=== PATIENT | female | born 2005 | race Caucasian/White ===

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

== ENCOUNTER 2025-06-24 14:08 | Emergency (ER) | payer OTHER, SELFPAY ==
[2025-06-24 14:10] VITALS: BP 116/64; PULSE 110; RESP 16; TEMP 37.4; O2SAT 100; BMI 21.7
[2025-06-24 14:35] VITALS: BP 127/67; PULSE 88; RESP 14; TEMP 37.4; O2SAT 127
--- NOTE | 2025-06-24 15:10 | CT_ITS ---
PROCEDURE: CT ABDOMEN/PELVIS W IV CONT ONLY 06/24/2025 REASON FOR EXAM: RLQ PAIN TECHNIQUE: Procedure Code: [id number] Modality: CT Procedure: ABDOMEN/PELVIS W IV CONT ONLY Coronal and Sagittal reconstruction series were provided. CONTRAST: Isovue-300 VOLUME: 99 mL One or more dose reduction techniques were used (e.g., Automated exposure control, adjustment of the mA and/or kV according to patient size, use of iterative reconstruction technique. RADIATION DOSE SUMMARY: DLP: 398.24 mGycm COMPARISON: None. FINDINGS: Lung bases: Clear. Liver: No significant abnormality. Gallbladder: Unremarkable. Spleen: Unremarkable. Pancreas: Unremarkable. Adrenals: Unremarkable. Kidneys: Unremarkable. No urolithiasis or hydronephrosis. Bladder: Underdistended, grossly unremarkable. Reproductive Organs: Uterus and adnexae appear within normal limits. IUD within the uterine cavity. Small 2 cm probable involuting corpus luteal cyst within the right ovary. Trace free fluid within the pelvis is nonspecific, and may be physiologic or could be related to recent cyst rupture. Bowel: Unremarkable. No obstruction or active inflammation. Normal appendix. Lymph nodes: No enlarged abdominopelvic lymph nodes. Vasculature: Normal course and caliber of the abdominal aorta and IVC. Peritoneum / Retroperitoneum: No ascites or pneumoperitoneum. Bones: Unremarkable. CT/Abdomen/Pelvis W IV Cont ONLY IMPRESSION: 1. No acute or active inflammatory intra-abdominal pathology. Normal appendix. 2. Likely involuting 2 cm right ovarian corpus luteal cyst. Trace free fluid w ithin the pelvis is nonspecific and may be physiologic, or could reflect sequelae of recent cyst rupture. Reading Location: [facility]
--- NOTE | 2025-06-24 15:11 | EX.ED.DYSGE1 ---
HPI History of Present Illness Chief Complaint: Nausea/Vomiting/Diarrhea Narrative Narrative: Patient is a 19-year-old female with past medical history of celiac disease, ADHD, anxiety who presented to the emergency department chief complaint nausea vomiting abdominal pain. States that yesterday she was not feeling well overall. She states that she had a few episodes of nausea and vomiting earlier today and notes that her mother tried to give her Zofran. States that this helped for short period time she tried to eat again and vomited. States that she is not at the [employer] currently and notes that there is a a lot of different viral illnesses going around right now but she states that in her immediate friend group nobody has similar symptoms to her. [facility] Medical History Chronic constipation Celiac disease ADHD Anxiety Home Medications ?Medication ?Instructions ?Recorded ?Last Taken ?Type ondansetron 4 mg disintegrating 4 mg PO Q8H PRN PRN Nausea #10 tabs 01/30/24 Unknown Rx tablet clonidine HCl 0.1 mg tablet 0.1 mg PO DAILY 06/24/25 Unknown History dicyclomine 20 mg tablet 20 mg PO TID #20 tabs 06/24/25 Unknown Rx fluoxetine 40 mg capsule 80 mg PO DAILY 06/24/25 Unknown History guanfacine 2 mg tablet,extended 2 mg PO DAILY 06/24/25 Unknown History release 24 hr methylphenidate 15 mg/9 hr daily 15 mg transdermal DAILY 06/24/25 Unknown History transdermal patch ondansetron 4 mg disintegrating 4 mg PO Q6H PRN nausea and 06/24/25 Unknown Rx tablet vomiting #20 tabs Allergy/AdvReac Type Severity Reaction Status Date / Time No Known Allergies Allergy Verified 06/24/25 14:12 Social History Smoking Status: Never smoker ROS ROS ED ROS Narrative Constitutional: Denies any fevers, chills, headache Abdomen: Complains of abdominal pain as noted above, as well as nausea vomiting and diarrhea : Denies any urinary symptoms, states that she has IUD in place Neurological: Denies any numbness, weakness, tingling Musculoskeletal: Denies back pain Skin: Denies any rashes or lesions EXAM Physical Exam Narrative Exam Narrative: General: Patient was lying in bed rest comfortably did not appear to be acute distress Head: Atraumatic, normocephalic Eyes: PERRL bilaterally, EOMI bilateral, no conjunctival injection noted Neck: Soft, supple, trachea midline Cardiovascular: Regular rate and rhythm Respiratory: Clear to auscultation bilaterally Abdomen: Soft, nondistended, tenderness to palpation in the right lower quadrant as well as the right upper quadrant but no rebound or guarding on exam Extremities: +5/5 strength noted in the bilateral upper and lower extremities, radial pulses +2/4 in the bilateral extremities Neurological: Patient following commands and that she was at [facility] the year is 2024 Skin: Warm, dry, intact no rashes or lesions noted Const Vital Signs: 06/24/25 14:10 06/24/25 14:35 06/24/25 15:29 Temperature 99.3 F H 99.3 F H 99.1 F Temperature Source Oral Oral Oral Pulse Rate 110 H 88 70 Respiratory Rate 16 14 16 Blood Pressure 116/64 127/67 H 106/78 Blood Pressure Mean 81 87 87 Pulse Ox 100 127 100 Oxygen Delivery Method Room Air Room Air Room Air MDM MDM MDM Narrative Medical decision making narrative: Patient is a 19-year-old female who presents to the emergency department the chief complaint of abdominal pain nausea vomiting diarrhea. On the differential diagnose includes but not limited to viral gastroenteritis, appendicitis, cholecystitis. Once the workup is obtained reviewed she will be reevaluated. Patient be given IV fluids and Zofran. Patient CBC reviewed which showed no evidence leukocytosis white blood count of 8.4, stable 13.4, plate count normal 345. Patient sodium low at 140, potassium low at 3.5, creatinine 0.63. Patient AST and ALT were 25 and 33 respectively lipase was normal at 37. Patient test was negative. Total bilirubin normal at 0.31. Patient urinalysis showed negative nitrites negative leukocyte esterase she does not have any urinary symptoms therefore have low suspicion that the microscopic exam will be positive. Patient CT ab pelvis IV contrast reviewed which showed no acute or active inflammatory intra-abdominal pathology normal appendix. Likely involuting 2 cm right ovarian corpus luteal cyst trace free fluid within the pelvis is nonspecific may be physiological. Patient is feeling better she like to go home at this point time. Did discuss the results with her. She is advised to start with a bland diet and advance as tolerated. She will given prescription for Zofran and Bentyl. She is agreeable with plan all question concerns answered. She was encouraged to return with worsening symptoms or any concerns Lab Data Labs: Laboratory Results - last 24 hr 06/24/25 06/24/25 15:20 15:30 WBC 8.4 RBC 4.61 Hgb 13.4 Hct 39.2 MCV 85.0 MCH 29.1 MCHC 34.2 RDW Std Deviation 36.5 RDW Coeff of Ban 11.9 Plt Count 345 MPV 9.0 Immature Gran % (Auto) 0.200 Neut % (Auto) 62.5 Lymph % (Auto) 30.2 [place] % (Auto) 6.5 Eos % (Auto) 0.2 Baso % (Auto) 0.4 Absolute Neuts (auto) 5.2 Absolute Lymphs (auto) 2.54 Nucleated RBC % 0 Sodium 140 Potassium 3.5 Chloride 104 Carbon Dioxide 21.1 Anion Gap 14 BUN 6 Creatinine 0.63 L Estim Creat Clear Calc 113.60 Est GFR (MDRD) Non-Af 131 BUN/Creatinine Ratio 9.0 L Glucose 85 Calcium 9.8 Total Bilirubin 0.31 AST 25 ALT 33 Alkaline Phosphatase 72 Total Protein 7.9 Albumin 4.9 Globulin 3.0 Albumin/Globulin Ratio 1.6 Lipase 37 Serum , Qual NEGATIVE Urine Color Straw Urine Clarity Sl. Cloudy Urine pH 6.[address] [place] 1.010 Urine Protein 15 H Urine Glucose (UA) Normal Urine Ketones 50 H Urine Occult Blood 10 H Urine Nitrite Negative Urine Bilirubin Negative Urine Urobilinogen Normal Ur Leukocyte Esterase Negative Radiography Diagnostic Testing: Clinical Impression(s) from Imaging Studies Abdomen/Pelvis CT 06/24/25 15:10 IMPRESSION: 1. No acute or active inflammatory intra-abdominal pathology. Normal appendix. 2. Likely involuting 2 cm right ovarian corpus luteal cyst. Trace free fluid within the pelvis is nonspecific and may be physiologic, or could reflect sequelae of recent cyst rupture. Reading Location: [facility] Discharge Plan Triage Chief Complaint: Nausea/Vomiting/Diarrhea ED Provider: Jose Coto Dx/Rx/DC Orders Clinical Impression: Abdominal pain, Nausea & vomiting, Viral gastroenteritis Prescriptions: New ondansetron 4 mg tablet,disintegrating 4 mg PO Q6H PRN (Reason: nausea and vomiting) Qty: 20 0RF dicyclomine 20 mg tablet 20 mg PO TID Qty: 20 0RF No Action ondansetron [ondansetron] 4 mg tablet,disintegrating 4 mg PO Q8H PRN PRN (Reason: Nausea) Qty: 10 0RF guanfacine 2 mg tablet extended release 24 hr 2 mg PO DAILY methylphenidate 15 mg/9 hr patch 24 hour 15 mg transdermal DAILY Rx Instructions: do not leave patch on for more than 9 hrs fluoxetine 40 mg capsule 80 mg PO DAILY clonidine HCl 0.1 mg tablet 0.1 mg PO DAILY Primary Care Provider: Care Physician,No Primary Referrals: HOLLY NORRIS [Other] Activity Restrictions/Additional Instructions: Your blood work did not show any acute findings here today. Your CT did not show any evidence of appendicitis or any other acute findings. Return with worsening symptoms or any concerns. Start with a bland diet advance as tolerated. Use prescriptions that were sent to the pharmacy as prescribed. Follow-up with your doctor in the outpatient setting. Print Language: Kiswahili Disposition Disposition: Home, Self Care
[2025-06-24 15:29] VITALS: BP 106/78; PULSE 70; RESP 16; TEMP 37.3; O2SAT 100
[2025-06-24] MEDS: 0.9% Normal Saline (1000mL) 1,000 ML 999 ML IV (15:30)
[2025-06-24 15:42] LABS: Mucous, Urine 0 SEEN /hpf (<or=2+)
[2025-06-24 15:50] LABS: Hematocrit 39.2 % (37-47); Hemoglobin 13.4 g/dL (12.0-15.0); Immature Granulocytes Count 0.020 X10^3/uL (0.0-0.0); Mean Corp Hgb Conc 34.2 g/dL (32-36); Mean Corpuscular Volume 85.0 fL (81-99); Mean Platelet Vol. 9.0 fl (6.2-12.0); NRBC Flagged by Analyzer 0 % (0-5); Platelet Count 345 K/mm3 (150-450); RBC Distribution Width CV 11.9 % (11.6-14.6); RBC Distribution Width SD 36.5 fl (35.1-43.9); Red Blood Count 4.61 M/mm3 (4.2-5.4); White Blood Count 8.4 K/mm3 (4.4-11.0)
[2025-06-24 15:57] LABS: Internal QC Validated? YES +Cl - CLEAR BKGD
[2025-06-24 15:58] LABS: Pregnancy, Serum, hCG Quali. NEGATIVE Negative; Record Kit Lot#, Serum Preg. 947241
[2025-06-24 16:20] LABS: AST(SGOT) 25 U/L (<=31); Alanine Aminotransfer ALT/SGPT 33 U/L (<=34); Albumin, Serum 4.9 g/dL (3.5-5.0); Alkaline Phosphatase 72 U/L (35-104); Anion Gap 14 (5-15); BUN 6 mg/dL (4-19); BUN/Creat Ratio 9.0 RATIO (10-20); Calcium,Total 9.8 mg/dL (7.6-11.0); Carbon Dioxide 21.1 mmol/L (21.0-32.0); Chloride 104 mmol/L (98-108); Estimated Creatinine Clearance 113.60 ml/min (50-250); Globulin 3.0 g/dL (2.2-4.2); Glucose 85 mg/dL (70-99); Lipase 37 U/L (13-75); Potassium 3.5 mmol/L (3.3-5.1)
[2025-06-24 16:50] LABS: Color, Urine Straw (Yellow); Glucose, Dipstick Normal (Normal); Ketone-Dipstick 50 mg/dl (Negative); Leukocyte Esterase-Dipstick Negative /ul (Negative); Nitrite-Dipstick Negative (Negative); Occult Blood-Urine 10 /ul (Negative); Protein-Dipstick 15 mg/dl (Negative); Specific Gravity, Urine 1.010 (1.002-1.030); Urine Bilirubin Dipstick Negative (Negative)
[2025-06-24 17:44] VITALS: BP 118/78; PULSE 78; RESP 18; TEMP 37.1; O2SAT 98
[2025-06-24 19:14] LABS: Red Blood Cells-Urine 0-5 SEEN /hpf (0-5); Squamous Epithelial Cells - UA 5-10 SEEN /hpf (5-10)
== END 2025-06-24 17:57 | disposition home or self-care (01) ==
PROVIDERS: Emergency Provider Emergency Medicine; Visit Provider Emergency Medicine
DX: A08.4 Viral intestinal infection, unspecified (principal); K90.0 Celiac disease; F90.9 Attention-deficit hyperactivity disorder, unspecified type; F41.9 Anxiety disorder, unspecified; Z79.899 Other long term (current) drug therapy
CPT/HCPCS: 74177; 80053; 81001; 83690; 84703; 85025; 96361; 96374; 99283; Q9967; A4216; J2405